=== PATIENT | male | born 1950 | race Caucasian/White ===

== ENCOUNTER → 2018-03-21 | Outpatient (CLI) | payer BC | LOC: M RAD 07:50 | DX: Z12.2 Encounter for screening for malignant neoplasm of respiratory organs (principal); F17.218 Nicotine dependence, cigarettes, with other nicotine-induced disorders; I25.10 Atherosclerotic heart disease of native coronary artery without angina pectoris; J43.9 Emphysema, unspecified; R91.8 Other nonspecific abnormal finding of lung field | CPT/HCPCS: G0297 ==

== ENCOUNTER → 2019-11-04 | Outpatient (CLI) | payer BC ==
--- NOTE | 2019-11-04 10:24 | REP ---
CT CHEST WITHOUT CONTRAST: HISTORY: Abnormal lung field finding. Comparison chest CT study, March 21, 2018. FINDINGS: Emphysematous changes are noted in the lung romeo bilaterally similar to the prior study. There is a small right pleural effusion. Interstitial fibrosis pattern is seen in the bases. There is a stable 6 mm nodular opacity in the left lower lobe visible on today's study, page 85 of 116 in series 201. There is calcific pleural plaquing on the left. There is stable 10.5 mm nodular opacity in the right lung apex with some adjacent pleural fibrosis. No new pulmonary mass or significant pulmonary nodule is seen. Prior median sternotomy wires are noted. The patient appears to be status post aortic valve replacement. No pericardial effusion is seen. Extensive vascular calcifications noted. Normal adrenal glands. There is a calcification in the gallbladder lumen, consistent with cholelithiasis. IMPRESSION: Evidence of COPD. Stable nodular opacities. Electronically Signed by Everardo Zavala MD 11/04/2019 12:45 P
== END ==
LOC: M RAD 09:10
PROVIDERS: ATTEND Internal Medicine Pulmonary Disease
DX: R91.8 Other nonspecific abnormal finding of lung field (principal); J43.9 Emphysema, unspecified; J90 Pleural effusion, not elsewhere classified; J84.10 Pulmonary fibrosis, unspecified